=== PATIENT | female | born 1995 | race Caucasian/White ===

== ENCOUNTER 2020-06-06 17:14 | Emergency (ER) | payer OTHER ==
[~2020-06-06 17:14] MED LIST: ACETAMINOPHEN500 MG GT; ACETIC ACID15 ML EARBOTH; AMANTADINE GT; ARTIFICIAL TEAR15 M6 EYEBOTH; BENEPROTEIN1 EACH GT; CALCIUM CA500 MG/5 M GT; CEFDINIR300 MG GT; CERTAVITE-ANTI1 EACH GT; COLACE100 MG GT; DEEP SEA44 ML; DIASTAT ACUDIA1 EAC1 PR; DIAZEPAM 2MG TAB2 MG GT; DRISDOL50000 UNIT GT; FOLIC ACID1 MG GT; GENTLE LAXATIVE10 MG PR; IBUPROFEN400 MG GT; IBUPROFEN400 MG PO; KEPPRA100 MG/1 M GT; KLONOPIN1 MG GT; LOVAZA1 GM PO; MELATONIN5 M2 GT; MIRALAX17 GM GT; NEURONTIN100 MG GT; PERIDEX15 ML PO; POTASSIUM20 MEQ/11 PO; READY TO USE E133 ML PR; ROBINUL FORTE 2M2 MG GT; ROBITUSSIN LON118 ML GT; SELRX180 ML TOP; VENTOLIN (2.5 MG/0.5 NEB; [UNRECOGNIZED DRUG - OTHER] TOP
== END 2020-06-06 20:26 | disposition home or self-care (01) ==
LOC: FER 17:14
DX: Z43.1 Encounter for attention to gastrostomy (principal); Z88.8 Allergy status to other drugs, medicaments and biological substances
CPT/HCPCS: 99283

== ENCOUNTER 2020-06-07 13:14 | Emergency (ER) | payer OTHER | END 2020-06-07 16:55 | disposition home or self-care (01) | LOC: FER 13:14 | DX: K94.23 Gastrostomy malfunction (principal); Z88.5 Allergy status to narcotic agent; Z88.8 Allergy status to other drugs, medicaments and biological substances | CPT/HCPCS: 74018 ==

== ENCOUNTER 2020-06-15 19:16 | Emergency (ER) | payer OTHER | END 2020-06-15 20:11 | disposition home or self-care (01) | LOC: FER 19:16 | DX: T18.9XXA Foreign body of alimentary tract, part unspecified, initial encounter (principal); Z87.820 Personal history of traumatic brain injury; Z88.5 Allergy status to narcotic agent; Z88.8 Allergy status to other drugs, medicaments and biological substances | CPT/HCPCS: 74018 ==

== ENCOUNTER 2020-11-06 14:22 | Emergency (ER) | payer OTHER | END 2020-11-06 15:54 | disposition home or self-care (01) | LOC: FER 14:22 | DX: Z43.1 Encounter for attention to gastrostomy (principal); S06.9X0A Unspecified intracranial injury without loss of consciousness, initial encounter; Z90.49 Acquired absence of other specified parts of digestive tract; Z88.8 Allergy status to other drugs, medicaments and biological substances; X58.XXXA Exposure to other specified factors, initial encounter | CPT/HCPCS: 99283 ==

== ENCOUNTER 2021-04-21 17:00 | Emergency (ER) | payer OTHER | END 2021-04-21 18:10 | disposition home or self-care (01) | LOC: FER 17:00 | DX: Z43.1 Encounter for attention to gastrostomy (principal); Z88.8 Allergy status to other drugs, medicaments and biological substances | CPT/HCPCS: 74018 ==